=== PATIENT | female | born 1955 | race Caucasian/White ===

== ENCOUNTER → 2017-06-29 | Outpatient (CLI) | payer BC ==
--- NOTE | 2017-06-30 07:20 | US ---
EXAMINATION TYPE: US pelvis complete transvag DATE OF EXAM: 06/29/2017 COMPARISON: NONE CLINICAL HISTORY: N95.0 Post Uyen Bleeding, N80.9 endometriosis. pmb x 2 weeks ago, lasted a few hour s. Hx of tubal ligation. Ablation x 20 years ago. 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 Uterus: Anteverted Appears heterogenous and small in size. Suboptimally seen transvaginally. Hypoechoic left uterine lesion = 1.2 x 1.1 x 1.0 cm, likely intramural leiomyoma 2. Endometrium: Not well visualized but possibly measures up to 1.1 cm, enlarged. 3. Right Ovary: Obscured by overlying bowel gas 4. Left Ovary: Obscured by overlying bowel gas 5. Bilateral Adnexa: wnl 6. Posterior cul-de-sac: no free fluid IMPRESSION: 1. The exam is somewhat limited due to technique, however there appears to be endometrial thickening. In this patient with postmenopausal bleeding further evaluation with direct visualization and tissue sampling and/or sonohysterogram are recommended for further evaluation. 2. Hypoechoic left intramural 1.2 cm myometrial mass, likely relating to an intramural leiomyoma.
== END | disposition home or self-care (01) ==
LOC: RADUSWWP 15:49
PROVIDERS: ATTEND Family Medicine
DX: N80.9 Endometriosis, unspecified (principal); N95.0 Postmenopausal bleeding
CPT/HCPCS: 76830; 76856

== ENCOUNTER → 2017-07-18 | Outpatient (CLI) | payer BC ==
--- NOTE | 2017-07-20 07:31 | MM ---
Reason for exam: screening (asymptomatic). Last mammogram was performed 1 year and 4 months ago. History: Patient is postmenopausal. Family history of breast cancer in maternal aunt. Benign stereotactic core biopsy of the right breast, May 03, 2003. Excisional biopsy of the right breast, 1968. 2 excisional biopsies of the left breast. Excisional biopsy of the right breast. Took hormonal contraceptives beginning at age 14. Took estrogen beginning at age 42. Physical Findings: A clinical breast exam by your physician is recommended on an annual basis and results should be correlated with mammographic findings. MG Screening Mammo w CAD Bilateral CC and MLO view(s) were taken. Prior study comparison: March 03, 2016, bilateral MG screening mammo w CAD. March 28, 2013, bilateral digital screening mammo w/CAD. The breast tissue is heterogeneously dense. This may lower the sensitivity of mammography. No suspicious abnormality. No significant changes when compared with prior studies. ASSESSMENT: Negative, BI-RAD 1 RECOMMENDATION: Routine screening mammogram of both breasts in 1 year.
== END | disposition home or self-care (01) ==
LOC: RADMAMWWP 14:47
PROVIDERS: ATTEND Family Medicine
DX: Z12.31 Encounter for screening mammogram for malignant neoplasm of breast (principal)
CPT/HCPCS: 77067

== ENCOUNTER 2017-11-17 01:33 | Inpatient (IN) | payer BC ==
[2017-11-17 02:15] LABS: Appearance,Urine Clear (Clear); Bilirubin,Urine Negative (Negative); Blood,Urine Moderate (Negative); Color,Urine Yellow; Glucose,Urine (UA) Negative (Negative); Ketones,Urine Negative (Negative); Leukocyte Esterase,Urine Moderate (Negative); Mucus,Urine Few /hpf; Nitrite,Urine Negative (Negative); PH, Urine 6.5 (5.0-8.0); Protein,Urine Trace (Negative); RBC,Urine 12 /hpf (0-5); Specific Gravity,Urine 1.014 (1.001-1.035); Squamous Epithelial Cell,Urine 2 /hpf (0-4); Urobilinogen,Urine <2.0 mg/dL (<2.0); WBC,Urine 6 /hpf (0-5)
[2017-11-17] MEDS ORDERED: SODIUM CHLORIDE 0.9% 1,000 ML IV ONE ×2 (02:19→06:45)
[2017-11-17] MEDS ORDERED: ONDANSETRON 4 MG/2 ML VIAL IVP STA (02:20)
[2017-11-17] MEDS ORDERED: HYDROmorphone 1 MG/ML 1 ML SYRINGE IVP STA (02:30)
[2017-11-17 02:35] LABS: Basophils % (A) 0 %; Eosinophils # (A) 0.1 k/uL (0-0.7); Eosinophils % (A) 1 %; HCT 43.8 % (34.0-46.0); HGB 14.5 gm/dL (11.4-16.0); Lymphocytes # (A) 1.7 k/uL (1.0-4.8); Lymphocytes % (A) 16 %; MCH 30.2 pg (25.0-35.0); MCV 91.4 fL (80.0-100.0); Mean Platelet Volume 7.4; Monocytes # (A) 0.4 k/uL (0-1.0); Monocytes % (A) 4 %; Neutrophils % (A) 78 %; Platelet Count 271 k/uL (150-450); RBC 4.79 m/uL (3.80-5.40); WBC 10.3 k/uL (3.8-10.6)
[2017-11-17 02:38] LABS: ALT 52 U/L (9-52); AST 63 U/L (14-36); Albumin 4.3 g/dL (3.5-5.0); Alkaline Phosphatase 83 U/L (38-126); Amylase 47 U/L (30-110); Anion Gap 11 mmol/L; Blood Urea Nitrogen 12 mg/dL (7-17); Calcium 9.5 mg/dL (8.4-10.2); Carbon Dioxide 25 mmol/L (22-30); Chloride 99 mmol/L (98-107); Glucose 124 mg/dL (74-99); Lipase 32 U/L (23-300); Potassium 4.1 mmol/L (3.5-5.1); Sodium 135 mmol/L (137-145); Total Protein 7.3 g/dL (6.3-8.2)
--- NOTE | 2017-11-17 02:45 | ED ---
Abdominal Pain HPI - General Chief Complaint: Abdominal Pain Stated Complaint: Abdominal Pain, Back Pain Time Seen by Provider: 11/17/17 02:23 Source: patient Mode of arrival: wheelchair Limitations: physical limitation - History of Present Illness Initial Comments: 62-year-old female patient presents to emergency department today for evaluation of right-sided abdominal pain that radiates into her back and into her right shoulder. Patient states that this started a couple of hours ago. Patient states that she is very nauseated with this. States that the pain is severe. She denies any fevers or chills. Denies any constipation or diarrhea. Denies any history of similar symptoms. She denies any history of surgeries to the abdomen. Denies any pain in the chest. Denies any shortness of breath. Denies any sweats. States her urine is dark. Patient denies any recent rash, shortness breath, chest pain, numbness, tingling, dizziness, weakness, hematuria , dysuria, urinary urgency, urinary frequency, headache, visual changes, or any other complaints. - Related Data Allergies Allergy/AdvReac Type Severity Reaction Status Date / Time No Known Allergies Allergy Verified 11/17/17 01:38 Review of Systems ROS Statement: Those systems with pertinent positive or pertinent negative responses have been documented in the HPI. ROS Other: All systems not noted in ROS Statement are negative. Past Medical History Past Medical History: Hyperlipidemia, Hypertension History of Any Multi-Drug Resistant Organisms: None Reported Additional Past Surgical History / Comment(s): breast biopsies (benign.) bunion surgery bilat, left wrist surgery. Past Psychological History: No Psychological Hx Reported Smoking Status: Never smoker Past Alcohol Use History: Occasional Past Drug Use History: None Reported General Exam Limitations: physical limitation General appearance: alert, in no apparent distress, other (This is a well- developed, well-nourished adult female patient in no acute distress. Vital signs upon presentation are temperature 98.0F, pulse 78, respirations 18, blood pressure 158/84, pulse ox 99% on room air.) Eye exam: Present: normal appearance, PERRL, EOMI. Absent: scleral icterus, conjunctival injection, periorbital swelling ENT exam: Present: normal exam, normal oropharynx, mucous membranes moist Respiratory exam: Present: normal lung sounds bilaterally. Absent: respiratory distress, wheezes, rales, rhonchi, stridor Cardiovascular Exam: Present: regular rate, normal rhythm, normal heart sounds. Absent: systolic murmur, diastolic murmur, rubs, gallop, clicks GI/Abdominal exam: Present: soft, tenderness (Right upper quadrant, right lower quadrant abdominal tenderness), normal bowel sounds. Absent: distended, guarding, rebound, rigid Neurological exam: Present: alert, oriented X3, CN II-XII intact Psychiatric exam: Present: normal affect, normal mood Skin exam: Present: warm, dry, intact, normal color. Absent: rash Course Vital Signs 11/17/17 11/17/17 01:35 03:46 Temperature 98.0 F 99.0 F Pulse Rate 78 94 Respiratory 18 20 Rate Blood Pressure 158/84 100/49 O2 Sat by Pulse 99 95 Oximetry Medical Decision Making - Medical Decision Making 62-year-old female patient presented to the emergency department today for evaluation of right-sided abdominal pain. Physical examination did reveal right lower and right upper quadrant abdominal pain. Labs reviewed and are relatively unremarkable however she did have an elevation in her neutrophil count at 8 with overall white blood cell count within normal range. CT of the abdomen and pelvis was obtained, does show evidence of acute appendicitis. Case was discussed with surgeon bulk station operator Dr. Ravi. She will be admitted given a dose of Unasyn and surgery scheduled for 629. Did discuss the case and plan with the family. - Lab Data Result diagrams: 11/17/17 02:13 11/17/17 02:13 Lab Results 11/17/17 11/17/17 11/17/17 Range/Units 01:57 02:13 02:13 WBC 10.3 (3.8-10.6) k/uL RBC 4.79 (3.80-5.40) m/uL Hgb 14.5 (11.4-16.0) gm/dL Hct 43.8 (34.0-46.0) % MCV 91.4 (80.0-100.0) fL MCH 30.2 (25.0-35.0) pg MCHC 33.0 (31.0-37.0) g/dL RDW 12.0 (11.5-15.5) % Plt Count 271 (150-450) k/uL Neutrophils % 78 % Lymphocytes % 16 % Monocytes % 4 % Eosinophils % 1 % Basophils % 0 % Neutrophils # 8.0 H (1.3-7.7) k/uL Lymphocytes # 1.7 (1.0-4.8) k/uL Monocytes # 0.4 (0-1.0) k/uL Eosinophils # 0.1 (0-0.7) k/uL Basophils # 0.0 (0-0.2) k/uL Sodium 135 L (137-145) mmol/L Potassium 4.1 (3.5-5.1) mmol/L Chloride 99 (98-107) mmol/L Carbon Dioxide 25 (22-30) mmol/L Anion Gap 11 mmol/L BUN 12 (7-17) mg/dL Creatinine 0.60 (0.52-1.04) mg/dL Est GFR (CKD-EPI)AfAm >90 (>60 ml/min/1.73 sqM) Est GFR (CKD-EPI)NonAf >90 (>60 ml/min/1.73 sqM) Glucose 124 H (74-99) mg/dL Calcium 9.5 (8.4-10.2) mg/dL Total Bilirubin 1.0 (0.2-1.3) mg/dL AST 63 H (14-36) U/L ALT 52 (9-52) U/L Alkaline Phosphatase 83 (38-126) U/L Total Protein 7.3 (6.3-8.2) g/dL Albumin 4.3 (3.5-5.0) g/dL Amylase 47 (30-110) U/L Lipase 32 (23-300) U/L Urine Color Yellow Urine Appearance Clear (Clear) Urine pH 6.5 (5.0-8.0) Ur Specific Levels 1.014 (1.001-1.035) Urine Protein Trace H (Negative) Urine Glucose (UA) Negative (Negative) Urine Ketones Negative (Negative) Urine Blood Moderate H (Negative) Urine Nitrite Negative (Negative) Urine Bilirubin Negative (Negative) Urine Urobilinogen <2.0 (<2.0) mg/dL Ur Leukocyte Esterase Moderate H (Negative) Urine RBC 12 H (0-5) /hpf Urine WBC 6 H (0-5) /hpf Ur Squamous Epith Cells 2 (0-4) /hpf Urine Mucus Few H (None) /hpf - Radiology Data Radiology results: report reviewed, image reviewed CT of the abdomen and pelvis with contrast was obtained. Report was reviewed in its entirety. Impression by Dr. Membreno shows thickened appendix with inflammatory changes and appendicolith related to acute appendicitis. Minimal free fluid in the pelvis. Disposition Clinical Impression: Appendicitis Disposition: ADMITTED IP TO THIS HOSP Condition: Serious Referrals: Pedro Fam DO [Primary Care Provider] - 1-2 days Decision to Admit Reason: Admit from EC Decision Date: 11/17/17 Decision Time: 04:14
[2017-11-17] MEDS ORDERED: MORPHINE SULFATE 2 MG/ML SYRINGE IVP STA (03:10)
--- NOTE | 2017-11-17 03:25 | CT ---
EXAMINATION TYPE: CT abdomen pelvis w con DATE OF EXAM: 11/17/2017 COMPARISON: NONE HISTORY: No prior, right sided abd pain that wraps around to the back CT DLP: 672.20 mGycm Automated exposure control for dose reduction was used. TECHNIQUE: Helical acquisition of images was performed from the lung bases through the pelvis. CONTRAST: Performed without Oral Contrast and with IV Contrast, patient injected with 100 mL of Isovue 300. FINDINGS: Lung bases are clear of consolidation. There is mild subsegmental atelectasis at the right lung base. There is no pleural effusion. Heart size is normal. Liver and spleen appear normal. Gallbladder appears normal. Bile ducts are not dilated. There is no p ancreatic mass. There is no adrenal mass. Kidneys show satisfactory contrast opacification. There is no hydronephrosis. There is 3.2 cm cyst on the medial left kidney. There is fat stranding in the mid abdomen apparently related to dilated appendix with inflammatory changes. Appendix measures 1.4 cm. T here is probably an appendicolith. The terminal ileum appears normal. There is a small amount of free fluid in the pelvis. Bladder distends smoothly. Uterus is anteverted. I see no bony destructive proc ess. There is no evidence of a pelvic mass. Abdominal aorta is atheromatous. IMPRESSION: THICKENED APPENDIX WITH INFLAMMATORY CHANGES AND APPENDICOLITH RELATED TO ACUTE APPENDICITIS. MINIMAL FREE FLUID IN THE PELVIS.
[2017-11-17] MEDS ORDERED: NALOXONE 0.4 MG/ML 1 ML VIAL IV PRN ×2 (04:10→08:18)
[2017-11-17] MEDS ORDERED: ONDANSETRON 4 MG/2 ML VIAL IVP PRN (04:10)
[2017-11-17] MEDS ORDERED: MORPHINE SULFATE 2 MG/ML SYRINGE IV PRN (04:10)
[2017-11-17] MEDS ORDERED: AMPICILLIN-SULBACTAM 3 GM in SODIUM CHLORIDE 0.9% 100 ML IVPB STA (04:12)
[2017-11-17] MEDS ORDERED: SODIUM CHLORIDE 0.9% 1,000 ML IV SCH (04:15)
[2017-11-17] MEDS ORDERED: ACETAMINOPHEN TAB 325 MG TAB PO STA (05:41)
--- NOTE | 2017-11-17 06:41 | P.GSHP ---
History of Present Illness H&P Date: 11/17/17 62-year-old female presents to the emergency department with complaints of abdominal pain specifically in the right lower quadrant. She states that the pain was very dull approximately 2 days ago and increased in intensity over the last 18 hours. She denied any pain current nausea but states that she did have previous nausea and no emesis. She denies any appetite. She denies having this type of pain previously. She denies any change in bowel function. She denies any fevers, chills, chest pain or shortness of breath. She has no additional complaints at this time. CT of the abdomen and pelvis was done in the emergency department and revealed an acute appendicitis. - Review of Systems All systems: negative Past Medical History Past Medical History: Hyperlipidemia, Hypertension History of Any Multi-Drug Resistant Organisms: None Reported Additional Past Surgical History / Comment(s): breast biopsies (benign.) bunion surgery bilat, left wrist surgery. Past Anesthesia/Blood Transfusion Reactions: No Reported Reaction Past Psychological History: No Psychological Hx Reported Smoking Status: Never smoker Past Alcohol Use History: Occasional Past Drug Use History: None Reported Medications and Allergies Allergies Allergy/AdvReac Type Severity Reaction Status Date / Time No Known Allergies Allergy Verified 11/17/17 01:38 Surgical - Exam Osteopathic Statement: *. No significant issues noted on an osteopathic structural exam other than those noted in the History and Physical/Consult. Vital Signs Temp Pulse Resp BP Pulse Ox 98.0 F 78 18 158/84 99 11/17/17 01:35 11/17/17 01:35 11/17/17 01:35 11/17/17 01:35 11/17/17 01:35 - General well nourished, no distress - Eyes normal ocular movement - Neck no bruits, trachea midline - Respiratory No difficulty with respiration - Abdomen Soft, tender in the right lower quadrant to palpation, nondistended, no rebound , no guarding - Neurologic normal sensation - Psychiatric oriented to time, oriented to person, oriented to place, speech is normal Results - Labs 11/17/17 02:13 11/17/17 02:13 Abnormal Lab Results - Last 24 Hours (Table) 11/17/17 11/17/17 11/17/17 Range/Units 01:57 02:13 02:13 Neutrophils # 8.0 H (1.3-7.7) k/uL Sodium 135 L (137-145) mmol/L Glucose 124 H (74-99) mg/dL AST 63 H (14-36) U/L Urine Protein Trace H (Negative) Urine Blood Moderate H (Negative) Ur Leukocyte Esterase Moderate H (Negative) Urine RBC 12 H (0-5) /hpf Urine WBC 6 H (0-5) /hpf Urine Mucus Few H (None) /hpf Diabetes panel 11/17/17 Range/Units 02:13 Sodium 135 L (137-145) mmol/L Potassium 4.1 (3.5-5.1) mmol/L Chloride 99 (98-107) mmol/L Carbon Dioxide 25 (22-30) mmol/L BUN 12 (7-17) mg/dL Creatinine 0.60 (0.52-1.04) mg/dL Glucose 124 H (74-99) mg/dL Calcium 9.5 (8.4-10.2) mg/dL AST 63 H (14-36) U/L ALT 52 (9-52) U/L Alkaline Phosphatase 83 (38-126) U/L Total Protein 7.3 (6.3-8.2) g/dL Albumin 4.3 (3.5-5.0) g/dL Calcium panel 11/17/17 Range/Units 02:13 Calcium 9.5 (8.4-10.2) mg/dL Albumin 4.3 (3.5-5.0) g/dL Pituitary panel 11/17/17 Range/Units 02:13 Sodium 135 L (137-145) mmol/L Potassium 4.1 (3.5-5.1) mmol/L Chloride 99 (98-107) mmol/L Carbon Dioxide 25 (22-30) mmol/L BUN 12 (7-17) mg/dL Creatinine 0.60 (0.52-1.04) mg/dL Glucose 124 H (74-99) mg/dL Calcium 9.5 (8.4-10.2) mg/dL Adrenal panel 11/17/17 Range/Units 02:13 Sodium 135 L (137-145) mmol/L Potassium 4.1 (3.5-5.1) mmol/L Chloride 99 (98-107) mmol/L Carbon Dioxide 25 (22-30) mmol/L BUN 12 (7-17) mg/dL Creatinine 0.60 (0.52-1.04) mg/dL Glucose 124 H (74-99) mg/dL Calcium 9.5 (8.4-10.2) mg/dL Total Bilirubin 1.0 (0.2-1.3) mg/dL AST 63 H (14-36) U/L ALT 52 (9-52) U/L Alkaline Phosphatase 83 (38-126) U/L Total Protein 7.3 (6.3-8.2) g/dL Albumin 4.3 (3.5-5.0) g/dL - Imaging CT scan - abdomen: report reviewed, image reviewed (CT of the abdomen and pelvis was reviewed. Thickening and inflammatory changes of the appendix was noted.) CT scan - pelvis: report reviewed, image reviewed Assessment and Plan (1) Appendicitis Narrative/Plan: 62-year-old female with acute appendicitis - Keep nothing by mouth - Begin IV fluid resuscitation - Begin antibiotics - Plan for or for laparoscopic appendectomy Current Visit: Yes Status: Acute Code(s): K37 - UNSPECIFIED APPENDICITIS SNOMED Code(s): 52259828
[2017-11-17] MEDS ORDERED: ONDANSETRON 4 MG/2 ML VIAL ONE (06:45)
[2017-11-17] MEDS ORDERED: LIDOCAINE 1% INJ 10MG/ML (20 ML MDV) ONE (06:45)
[2017-11-17] MEDS ORDERED: MIDAZOLAM 2 MG/2 ML VIAL ONE (06:45)
[2017-11-17] MEDS ORDERED: GLYCOPYRROLATE 0.2 MG/ML 2 ML VIAL ONE (06:45)
[2017-11-17] MEDS ORDERED: PROPOFOL 10 MG/ML 20 ML VIAL IV ONE (06:45)
[2017-11-17] MEDS ORDERED: NEOSTIGMINE 1 MG/ML 10 ML VIAL ONE (06:45)
[2017-11-17] MEDS ORDERED: ROCURONIUM BROMIDE 10 MG/ML 10 ML VIAL IV ONE (06:45)
[2017-11-17] MEDS ORDERED: fentaNYL (PF) 50 MCG/ML 2 ML AMP ONE (06:45)
[2017-11-17] MEDS ORDERED: SUCCINYLCHOLINE CHLORIDE 100 MG/5 ML SYR IV ONE (06:45)
[2017-11-17] MEDS ORDERED: ROPIVACAINE 5 MG/ML 30 ML VIAL MISCELLANE ONE (07:05)
[2017-11-17] MEDS ORDERED: LACTATED RINGERS 1,000 ML IV ONE (07:30)
--- NOTE | 2017-11-17 08:17 | P.OP ---
Date of Procedure: 11/17/17 Preoperative Diagnosis: Acute appendicitis Postoperative Diagnosis: Ruptured appendicitis, purulent abdomen Procedure(s) Performed: Laparoscopic appendectomy converted to open ileocecectomy Anesthesia: RADHA Surgeon: Thomas Ravi Estimated Blood Loss (ml): 50 Pathology: other (Appendix, ileocecal resection) Condition: stable Disposition: floor Indications for Procedure: 62-year-old female presented to the emergency department with 2 days of abdominal pain that was worsening over the last 18 hours. She states that she had some nausea episodes but denied any emesis. On workup in the emergency department acute appendicitis was noted on the CT of the abdomen and pelvis. Secondary to this patient was taken to the operating room. Patient was excellent the risks, benefits and alternatives to the procedure prior to attending the operating suite and did provide consent. Operative Findings: Ruptured appendicitis with purulent material and stool throughout the abdomen, inflamed small bowel and cecum Description of Procedure: The patient was brought into the operating suite and placed in supine position on the operating table. Sedation was provided by anesthesia and the patient underwent endotracheal intubation. The patient was then prepped and draped in regular sterile fashion. A super umbilical incision was made dissection was carried to the fascia the fascia was incised and the abdomen was entered. 12 mm trocar was placed and pneumoperitoneum was achieved. 2 additional 5 mm ports were placed. One was placed in the suprapubic region and one was placed in the left lower quadrant. It was immediately apparent that the patient had purulent material throughout her abdomen and a very inflamed portion of small bowel and colon in the right lower quadrant. The omental adhesions were slowly and bluntly dissected free from the adherent tissue. The cecum was able to be medialized and at that moment it was noted that there was a rupture of the appendix and there was stool throughout the right lower quadrant. At this point , it was deemed unsafe to continue laparoscopically and a open midline incision was made. Dissection was carried to the fascia and the fascia was incised along the length of the incision. The ileocecal region was then grasped and medialized and dissection was carried along the white line of Toldt to free the cecum from its retroperitoneal attachment. The ruptured portion of the appendix was noted just at the base of the appendix where it entered the cecum. The cecum was noted to be very inflamed and hard to the touch. The small bowel at the terminal ileum and ileocecal valve were noted to be inflamed as well. At this point a proximal and distal point of transection was decided and mesentery windows were created. 75 mm PIOTR staplers were fired across both these points and a LigaSure device was used to ligate the mesentery from the specimen. The specimen was then completely removed and handed off to pathology. An anastomosis was created between the ileum and the cecum using a 75 PIOTR stapler. A colotomy and enterotomy was created to introduce the stapling device and create anastomosis in [id number] fashion. A TX stapler was then used to close the resulting enterotomy. A running 2-0 Vicryl suture was then used to close the mesenteric defect. A 2-0 suture was also used at the crotch of the staple line to reduce tension. Copious amounts of irrigation was then used within the abdomen. Hemostasis was noted to be maintained. The midline incision was then closed with a running 0 PDS suture. Skin was then closed with skin edy. The remaining 5 mm port site was then closed with a 4 -0 Vicryl subcuticular suture. Sterile dressing was applied. The patient was awakened in the operating suite and taken to postanesthesia care unit in stable condition.
[2017-11-17] MEDS: KETOROLAC 30 MG/ML 1 ML VIAL IVP SCH ×4 (08:53→23:34)
[2017-11-17] MEDS: LACTATED RINGERS 1,000 ML IV SCH ×3 (09:45→23:46)
[2017-11-17] MEDS: PANTOPRAZOLE 40 MG/10 ML VIAL IV SCH (10:31)
[2017-11-17] MEDS ORDERED: ACETAMINOPHEN IV (For NPO) 1,000 MG in EMPTY BAG 1 BAG IVPB PRN (12:47)
[2017-11-17] MEDS: HEPARIN SODIUM,PORCINE 5,000 UNIT/ML 1 ML VIAL SQ SCH ×2 (17:10→23:34)
[2017-11-17] MEDS: PIPERACILLIN-TAZOBACTAM 3.375 GM in DEXTROSE/WATER 1 50ML.BAG IVPB SCH ×2 (17:10→23:34)
[2017-11-18] MEDS: KETOROLAC 30 MG/ML 1 ML VIAL IVP SCH ×4 (05:36→23:17)
[2017-11-18] MEDS: ONDANSETRON 4 MG/2 ML VIAL IVP PRN ×2 (05:36→23:17)
[2017-11-18 07:34] LABS: ALT 39 U/L (9-52); AST 28 U/L (14-36); Alkaline Phosphatase 66 U/L (38-126); Anion Gap 9 mmol/L; Blood Urea Nitrogen 12 mg/dL (7-17); Calcium 8.6 mg/dL (8.4-10.2); Carbon Dioxide 24 mmol/L (22-30); Chloride 105 mmol/L (98-107); Glucose 92 mg/dL (74-99); Potassium 4.3 mmol/L (3.5-5.1); Sodium 138 mmol/L (137-145); Total Protein 5.3 g/dL (6.3-8.2)
[2017-11-18 07:40] LABS: Basophils % (A) 0 %; Eosinophils % (A) 0 %; HCT 33.3 % (34.0-46.0); Lymphocytes # (A) 0.7 k/uL (1.0-4.8); Lymphocytes % (A) 7 %; MCH 31.7 pg (25.0-35.0); MCHC 33.7 g/dL (31.0-37.0); MCV 94.1 fL (80.0-100.0); Mean Platelet Volume 7.4; Monocytes # (A) 0.7 k/uL (0-1.0); Monocytes % (A) 7 %; Neutrophils % (A) 85 %; Platelet Count 190 k/uL (150-450); RBC 3.54 m/uL (3.80-5.40); RDW 12.2 % (11.5-15.5); WBC 9.4 k/uL (3.8-10.6)
[2017-11-18 07:47] LABS: HGB 11.2 gm/dL (11.4-16.0)
[2017-11-18] MEDS: HEPARIN SODIUM,PORCINE 5,000 UNIT/ML 1 ML VIAL SQ SCH ×3 (08:51→23:17)
[2017-11-18] MEDS: PIPERACILLIN-TAZOBACTAM 3.375 GM in DEXTROSE/WATER 1 50ML.BAG IVPB SCH ×3 (08:52→23:17)
[2017-11-18] MEDS: PANTOPRAZOLE 40 MG/10 ML VIAL IV SCH (08:52)
[2017-11-18] MEDS: LACTATED RINGERS 1,000 ML IV SCH ×2 (08:53→15:48)
--- NOTE | 2017-11-18 10:28 | P.PN ---
Subjective Progress Note Date: 11/18/17 Patient seen and examined at bedside. Complains of some abdominal soreness near incision site. Denies any emesis episodes but states that she has felt some nausea. She denies any flatus. She does admit to feeling rumbling in her abdomen. She states she is urinating without any issues. She denies any fevers, chills, chest pain or shortness of breath. Objective - Vital Signs Vital signs: Vital Signs Temp 98.9 F 11/18/17 07:15 Pulse 89 11/18/17 07:15 Resp 16 11/18/17 07:15 BP 137/70 11/18/17 07:15 Pulse Ox 97 11/18/17 07:15 Intake & Output 11/17/17 11/18/17 11/18/17 18:59 06:59 18:59 Intake Total 900 1300 Output Total 50 Balance 850 1300 Intake: IV 400 Intake, IV Titration 1300 Amount Lactated Ringers 1,000 ml 1250 @ 125 mls/hr IV .Q8H [facility] Rx#:[id number] Piperacillin-Tazobactam 3 50 .375 gm In Dextrose/Water 1 50ml.bag @ 12.5 mls/hr IVPB Q8HR [facility] Rx#: [id number] Oral 500 Output: Estimated Blood Loss 50 Other: # Voids 1 1 - Constitutional General appearance: Present: cooperative, no acute distress - EENT ENT: Present: hearing grossly normal - Respiratory Details: No difficulty with respiration - Gastrointestinal Gastrointestinal Comment(s): Soft, appropriate tenderness, nondistended, no rebound, no guarding, midline incision with surgical dressing in place - Psychiatric Psychiatric: Present: A&O x's 3, appropriate affect - Labs CBC & Chem 7: 11/18/17 06:20 11/18/17 06:20 Labs: Abnormal Lab Results - Last 24 Hours (Table) 11/18/17 11/18/17 Range/Units 06:20 06:20 RBC 3.54 L (3.80-5.40) m/uL Hgb 11.2 L D (11.4-16.0) gm/dL Hct 33.3 L (34.0-46.0) % Neutrophils # 8.0 H (1.3-7.7) k/uL Lymphocytes # 0.7 L (1.0-4.8) k/uL Total Protein 5.3 L (6.3-8.2) g/dL Albumin 3.0 L (3.5-5.0) g/dL Microbiology - Last 24 Hours (Table) 11/17/17 01:57 Urine Culture - Preliminary Urine,Voided Assessment and Plan (1) Appendicitis Narrative/Plan: 62-year-old female postoperative day #1 status post laparoscopic appendectomy, converted to open ileocecectomy secondary to ruptured appendicitis - Keep nothing by mouth, await bowel function - Continue antibiotics - Incentive spirometry - Discussed increased activity with the patient - Okay to have ice chips, chew gum or suck on hard candy - Progressing slowly Current Visit: Yes Status: Acute Code(s): K37 - UNSPECIFIED APPENDICITIS SNOMED Code(s): 82103812
[2017-11-19] MEDS: HYDROmorphone 0.5 MG/0.5 ML SYRINGE IVP PRN ×3 (00:26→18:41)
[2017-11-19] MEDS: LACTATED RINGERS 1,000 ML IV SCH ×3 (00:30→19:57)
[2017-11-19 07:40] LABS: Basophils % (A) 0 %; Eosinophils # (A) 0.1 k/uL (0-0.7); Eosinophils % (A) 1 %; HCT 31.8 % (34.0-46.0); HGB 10.4 gm/dL (11.4-16.0); Lymphocytes # (A) 0.6 k/uL (1.0-4.8); Lymphocytes % (A) 6 %; MCHC 32.9 g/dL (31.0-37.0); MCV 94.3 fL (80.0-100.0); Mean Platelet Volume 7.3; Monocytes # (A) 0.5 k/uL (0-1.0); Monocytes % (A) 5 %; Neutrophils # (A) 7.9 k/uL (1.3-7.7); Neutrophils % (A) 87 %; Platelet Count 235 k/uL (150-450); RBC 3.37 m/uL (3.80-5.40); RDW 12.4 % (11.5-15.5); WBC 9.1 k/uL (3.8-10.6)
[2017-11-19 07:56] LABS: Anion Gap 12 mmol/L; Blood Urea Nitrogen 11 mg/dL (7-17); Calcium 8.7 mg/dL (8.4-10.2); Carbon Dioxide 24 mmol/L (22-30); Chloride 103 mmol/L (98-107); Glucose 83 mg/dL (74-99); Potassium 4.2 mmol/L (3.5-5.1); Sodium 139 mmol/L (137-145)
--- NOTE | 2017-11-19 08:23 | P.PN ---
Subjective Progress Note Date: 11/19/17 Patient seen and examined at bedside. She states that she has had flatus and has had multiple liquid bowel movements. She denies any nausea and vomiting. She denies any abdominal pain. She has no additional complaints at this time. Objective - Vital Signs Vital signs: Vital Signs Temp 97.2 F L 11/19/17 07:00 Pulse 90 11/19/17 07:00 Resp 16 11/19/17 07:40 BP 184/79 11/19/17 07:00 Pulse Ox 92 L 11/19/17 01:13 Intake & Output 11/18/17 11/19/17 11/19/17 18:59 06:59 18:59 Intake Total 500 1600 500 Balance 500 1600 500 Weight 72.575 kg Intake: Intake, IV Titration 1600 Amount Lactated Ringers 1,000 ml 1500 @ 125 mls/hr IV .Q8H [facility] Rx#:[id number] Piperacillin-Tazobactam 3 100 .375 gm In Dextrose/Water 1 50ml.bag @ 12.5 mls/hr IVPB Q8HR [facility] Rx#: [id number] Oral 500 500 Other: Voiding Method Toilet Toilet # Voids 1 3 2 # Bowel Movements 1 1 - Constitutional General appearance: Present: cooperative, no acute distress - Respiratory Details: No difficulty with respiration - Gastrointestinal Gastrointestinal Comment(s): Soft, appropriate tenderness, nondistended, no rebound, no guarding, midline incision site is clean, dry and intact with edy in place - Psychiatric Psychiatric: Present: A&O x's 3, appropriate affect - Labs CBC & Chem 7: 11/19/17 06:27 11/19/17 06:27 Labs: Abnormal Lab Results - Last 24 Hours (Table) 11/19/17 Range/Units 06:27 RBC 3.37 L (3.80-5.40) m/uL Hgb 10.4 L (11.4-16.0) gm/dL Hct 31.8 L (34.0-46.0) % Neutrophils # 7.9 H (1.3-7.7) k/uL Lymphocytes # 0.6 L (1.0-4.8) k/uL Microbiology - Last 24 Hours (Table) 11/17/17 01:57 Urine Culture - Final Urine,Voided Strep agalactiae - (group b) Assessment and Plan (1) Appendicitis Narrative/Plan: 62-year-old female postoperative day #2 status post laparoscopic appendectomy, converted to open ileocecectomy secondary to ruptured appendicitis - Patient is having bowel function, advanced to clear liquid diet - Continue antibiotics - Incentive spirometry - Discussed increased activity with the patient - Restart hypertension medication - Progressing slowly Current Visit: Yes Status: Acute Code(s): K37 - UNSPECIFIED APPENDICITIS SNOMED Code(s): 84111925
[2017-11-19] MEDS: BISOPROLOL-HCTZ 5-6.25 MG 1 EACH TAB PO SCH (08:57)
[2017-11-19] MEDS: PIPERACILLIN-TAZOBACTAM 3.375 GM in DEXTROSE/WATER 1 50ML.BAG IVPB SCH ×2 (08:57→17:12)
[2017-11-19] MEDS: PANTOPRAZOLE 40 MG/10 ML VIAL IV SCH (08:57)
[2017-11-19] MEDS: LISINOPRIL 10 MG TAB PO SCH (08:57)
[2017-11-19] MEDS: HEPARIN SODIUM,PORCINE 5,000 UNIT/ML 1 ML VIAL SQ SCH ×2 (08:58→17:13)
[2017-11-19] MEDS: ONDANSETRON 4 MG/2 ML VIAL IVP PRN ×2 (09:45→17:16)
[2017-11-20] MEDS: ONDANSETRON 4 MG/2 ML VIAL IVP PRN ×3 (00:08→17:32)
[2017-11-20] MEDS: HEPARIN SODIUM,PORCINE 5,000 UNIT/ML 1 ML VIAL SQ SCH ×4 (00:08→23:44)
[2017-11-20] MEDS: LACTATED RINGERS 1,000 ML IV SCH ×3 (00:09→17:34)
[2017-11-20] MEDS: PIPERACILLIN-TAZOBACTAM 3.375 GM in DEXTROSE/WATER 1 50ML.BAG IVPB SCH ×4 (00:09→23:45)
[2017-11-20] MEDS: HYDROmorphone 0.5 MG/0.5 ML SYRINGE IVP PRN ×2 (00:18→11:11)
[2017-11-20 03:36] LABS: Glucose,Whole Blood 151 mg/dL (75-99)
[2017-11-20 07:10] LABS: Basophils % (A) 0 %; Eosinophils % (A) 0 %; HCT 31.4 % (34.0-46.0); HGB 10.5 gm/dL (11.4-16.0); Lymphocytes # (A) 0.6 k/uL (1.0-4.8); Lymphocytes % (A) 7 %; MCH 31.1 pg (25.0-35.0); MCHC 33.5 g/dL (31.0-37.0); MCV 92.8 fL (80.0-100.0); Mean Platelet Volume 7.5; Monocytes # (A) 0.6 k/uL (0-1.0); Monocytes % (A) 7 %; Neutrophils # (A) 7.5 k/uL (1.3-7.7); Neutrophils % (A) 85 %; Platelet Count 278 k/uL (150-450); RBC 3.38 m/uL (3.80-5.40); WBC 8.8 k/uL (3.8-10.6)
[2017-11-20 07:31] LABS: Anion Gap 12 mmol/L; Blood Urea Nitrogen 11 mg/dL (7-17); Calcium 8.6 mg/dL (8.4-10.2); Carbon Dioxide 26 mmol/L (22-30); Chloride 99 mmol/L (98-107); Glucose 116 mg/dL (74-99); Potassium 4.3 mmol/L (3.5-5.1); Sodium 137 mmol/L (137-145)
--- NOTE | 2017-11-20 09:07 | P.PN ---
Subjective Progress Note Date: 11/20/17 Patient seen and examined at bedside. She states she is feeling much better today. She denies any abdominal pain. She denies any emesis episodes. She states that she has had some mild intermittent nausea. She continues to have bowel function. Objective - Vital Signs Vital signs: Vital Signs Temp 96.9 F L 11/20/17 07:00 Pulse 83 11/20/17 07:00 Resp 18 11/20/17 07:00 BP 169/81 11/20/17 07:00 Pulse Ox 95 11/20/17 07:00 Intake & Output 11/19/17 11/20/17 11/20/17 18:59 06:59 18:59 Intake Total 500 1400 Balance 500 1400 Weight 72.575 kg Intake: Intake, IV Titration 1130 Amount Lactated Ringers 1,000 ml 1080 @ 75 mls/hr IV .[id number] [facility] Rx#:[id number] Piperacillin-Tazobactam 3 50 .375 gm In Dextrose/Water 1 50ml.bag @ 12.5 mls/hr IVPB Q8HR [facility] Rx#: [id number] Oral 500 270 Other: Voiding Method Toilet Toilet # Voids 2 2 1 # Bowel Movements 1 - Constitutional General appearance: Present: cooperative, no acute distress - EENT ENT: Present: hearing grossly normal - Respiratory Details: No difficulty with respiration - Gastrointestinal Gastrointestinal Comment(s): Soft, appropriate tenderness, nondistended, no rebound, no guarding, incision site is clean, dry and intact with dey in place - Psychiatric Psychiatric: Present: A&O x's 3, appropriate affect - Labs CBC & Chem 7: 11/20/17 06:09 11/20/17 06:09 Labs: Abnormal Lab Results - Last 24 Hours (Table) 11/20/17 11/20/17 11/20/17 Range/Units 03:34 06:09 06:09 RBC 3.38 L (3.80-5.40) m/uL Hgb 10.5 L (11.4-16.0) gm/dL Hct 31.4 L (34.0-46.0) % Lymphocytes # 0.6 L (1.0-4.8) k/uL Creatinine 0.50 L (0.52-1.04) mg/dL Glucose 116 H (74-99) mg/dL POC Glucose (mg/dL) 151 H (75-99) mg/dL Assessment and Plan (1) Appendicitis Narrative/Plan: 62-year-old female postoperative day #3 status post laparoscopic appendectomy, converted to open ileocecectomy secondary to ruptured appendicitis - Patient is having bowel function and tolerating clear liquid diet, advance to soft diet - Continue antibiotics - Incentive spirometry - Discussed increased activity with the patient - Restart hypertension medication - Progressing slowly - Discharge planning Current Visit: Yes Status: Acute Code(s): K37 - UNSPECIFIED APPENDICITIS SNOMED Code(s): 06431227
[2017-11-20] MEDS: LISINOPRIL 10 MG TAB PO SCH (09:19)
[2017-11-20] MEDS: BISOPROLOL-HCTZ 5-6.25 MG 1 EACH TAB PO SCH (09:19)
[2017-11-20] MEDS: PANTOPRAZOLE 40 MG/10 ML VIAL IV SCH (09:20)
[2017-11-20] MEDS: ACETAMINOPHEN TAB 325 MG TAB PO PRN ×2 (17:49→23:45)
[2017-11-20 20:13] VITALS: RESP 18
[2017-11-21 01:13] VITALS: PULSE 78
[2017-11-21] MEDS: ACETAMINOPHEN TAB 325 MG TAB PO PRN ×2 (05:44→12:12)
[2017-11-21] MEDS: LACTATED RINGERS 1,000 ML IV SCH (05:44)
[2017-11-21 07:50] LABS: Basophils % (A) 0 %; Eosinophils # (A) 0.2 k/uL (0-0.7); Eosinophils % (A) 2 %; HCT 34.8 % (34.0-46.0); HGB 11.7 gm/dL (11.4-16.0); Lymphocytes # (A) 1.2 k/uL (1.0-4.8); Lymphocytes % (A) 14 %; MCH 31.2 pg (25.0-35.0); MCHC 33.8 g/dL (31.0-37.0); MCV 92.4 fL (80.0-100.0); Mean Platelet Volume 7.8; Monocytes # (A) 0.8 k/uL (0-1.0); Monocytes % (A) 9 %; Neutrophils # (A) 6.1 k/uL (1.3-7.7); Neutrophils % (A) 73 %; Platelet Count 360 k/uL (150-450); RBC 3.77 m/uL (3.80-5.40); RDW 12.4 % (11.5-15.5); WBC 8.4 k/uL (3.8-10.6)
[2017-11-21 08:05] LABS: Anion Gap 10 mmol/L; Blood Urea Nitrogen 8 mg/dL (7-17); Carbon Dioxide 31 mmol/L (22-30); Chloride 99 mmol/L (98-107); Glucose 108 mg/dL (74-99); Potassium 3.6 mmol/L (3.5-5.1); Sodium 140 mmol/L (137-145)
--- NOTE | 2017-11-21 08:17 | P.DS ---
Providers Date of admission: 11/17/17 10:30 Attending physician: Thomas Ravi DO Primary care physician: Pedro Fam - Discharge Diagnosis(es) (1) Appendicitis Current Visit: Yes Status: Acute Hospital Course: The patient presented to the emergency department with complaints of abdominal pain. She was found to have appendicitis on CT of the abdomen and pelvis. The patient was taken to the operating room was found to have a ruptured appendicitis. An ileocecectomy was performed. Postoperatively, the patient was on the medical surgical floor. She did very well after surgery and improved daily. Her diet was advanced from a clear liquid diet towards a soft diet. Pain was well-controlled. The patient began to have bowel function. She was deemed stable for discharge. Procedures: Laparoscopic appendectomy converted to open ileocecectomy Patient Condition at Discharge: Good Plan - Discharge Summary Discharge Rx Participant: Yes New Discharge Prescriptions: New Ciprofloxacin HCl [Cipro] 500 mg PO Q12HR #14 tablet Ibuprofen [Motrin] 600 mg PO Q8HR PRN #21 tab PRN Reason: Pain metroNIDAZOLE [Flagyl] 500 mg PO Q8HR #21 tab Continue Simvastatin 60 mg PO HS Meloxicam 7.5 mg PO DAILY Lisinopril [Zestril] 10 mg PO DAILY Bisoprolol-Hctz 5-6.25 mg [Ziac 5-6.25 MG] 1 tab PO DAILY Lifitegrast [Xiidra] 1 drop BOTH EYES BID ALPRAZolam [Xanax] 0.5 mg PO HS PRN PRN Reason: Anxiety Discharge Medication List ALPRAZolam [Xanax] 0.5 mg PO HS PRN 11/17/17 [History] Bisoprolol-Hctz 5-6.25 mg [Ziac 5-6.25 MG] 1 tab PO DAILY 11/17/17 [History] Lifitegrast [Xiidra] 1 drop BOTH EYES BID 11/17/17 [History] Lisinopril [Zestril] 10 mg PO DAILY 11/17/17 [History] Meloxicam 7.5 mg PO DAILY 11/17/17 [History] Simvastatin 60 mg PO HS 11/17/17 [History] Ciprofloxacin HCl [Cipro] 500 mg PO Q12HR #14 tablet 11/21/17 [Rx] Ibuprofen [Motrin] 600 mg PO Q8HR PRN #21 tab 11/21/17 [Rx] metroNIDAZOLE [Flagyl] 500 mg PO Q8HR #21 tab 11/21/17 [Rx] Follow up Appointment(s)/Referral(s): Pedro Fam DO [Primary Care Provider] - 1-2 days Thomas Ravi DO [Doctor of Osteopathic Medicine] - 1 Week Activity/Diet/Wound Care/Special Instructions: Continue to increase activity daily Okay to shower, do not scrub soap on wound Continue soft diet Apply dressing to wound as necessary Continue antibiotics as prescribed If any issue, contact her surgeon or emergency department Discharge Disposition: HOME SELF-CARE
[2017-11-21] MEDS: BISOPROLOL-HCTZ 5-6.25 MG 1 EACH TAB PO SCH (08:22)
[2017-11-21] MEDS: LISINOPRIL 10 MG TAB PO SCH (08:22)
[2017-11-21] MEDS: PIPERACILLIN-TAZOBACTAM 3.375 GM in DEXTROSE/WATER 1 50ML.BAG IVPB SCH (08:22)
[2017-11-21] MEDS: PANTOPRAZOLE 40 MG/10 ML VIAL IV SCH (08:22)
[2017-11-21] MEDS: HEPARIN SODIUM,PORCINE 5,000 UNIT/ML 1 ML VIAL SQ SCH (08:23)
[2017-11-21 08:40] VITALS: BP 175/79; TEMP 97
[2017-11-21] MEDS: ONDANSETRON 4 MG/2 ML VIAL IVP PRN (11:56)
== END 2017-11-21 13:23 | disposition home or self-care (01) | DRG 331 ==
LOC: EC 01:33 → INTOOBSV 05:31 → 3SUR 05:31 → OBSVTOIN 10:30 → 3SUR 11-19 12:49
PROVIDERS: ADMIT Surgery; ATTEND Surgery
PROC: 0DTJ0ZZ Resection of Appendix, Open Approach (ICD-10-PCS; 2017-11-17)
PROC: 0DJD4ZZ Inspection of Lower Intestinal Tract, Percutaneous Endoscopic Approach (ICD-10-PCS; 2017-11-17)
PROC: 0DTH0ZZ Resection of Cecum, Open Approach (ICD-10-PCS; principal; 2017-11-17 06:04)
DX: K35.2 Acute appendicitis with generalized peritonitis (principal); E78.5 Hyperlipidemia, unspecified; Z53.31 Laparoscopic surgical procedure converted to open procedure; I10 Essential (primary) hypertension; Z79.1 Long term (current) use of non-steroidal anti-inflammatories (NSAID); Z79.899 Other long term (current) drug therapy
CPT/HCPCS: 36415; 74177; 80048; 80053; 81001; 82150; 83690; 85025; 87086; 88307; 93005; 96361; 96365; 96375; 96376; 99285